=== PATIENT | female | born 1970 | race Caucasian/White ===

== ENCOUNTER 2017-01-29 07:55 | Emergency (ER) | payer BC, OTHER ==
[~2017-01-29] VITALS: Ht 167.6 cm; Wt 83.0 kg
[2017-01-29] MEDS ORDERED: SYNTHROID88 MCG PO (08:45)
[2017-01-29] MEDS ORDERED: VOLTAREN50 MG PO (08:46)
[2017-01-29] MEDS ORDERED: ROBAXIN 750 MG750 M1 PO (08:46)
[2017-01-29] MEDS ORDERED: PREDNISONE 20 M20 MG PO (08:49)
[2017-01-29] MEDS ORDERED: VALIUM5 MG PO (08:49)
[2017-01-29] MEDS ORDERED: NORCO 5-325 TA1 EACH PO (08:49)
[2017-01-29 10:05] VITALS: BP 137/97
[2017-01-30] MEDS ORDERED: NABUMETONE 750750 M1 PO (09:15)
== END 2017-01-29 10:09 | disposition home or self-care (01) ==
LOC: ER 07:55
DX: M43.6 Torticollis (principal); F17.210 Nicotine dependence, cigarettes, uncomplicated; F10.99 Alcohol use, unspecified with unspecified alcohol-induced disorder

== ENCOUNTER → 2017-01-30 | Outpatient (CLI) | payer BC, OTHER ==
[~2017-01-30] VITALS: Ht 167.6 cm; Wt 83.1 kg
[~2017-01-30] MED LIST: NABUMETONE 750750 M1 PO; NORCO 5-325 TA1 EACH PO; PREDNISONE 20 M20 MG PO; ROBAXIN 750 MG750 M1 PO; SYNTHROID88 MCG PO; VALIUM5 MG PO; VOLTAREN50 MG PO
--- NOTE | ~2017-01-30 | HPC ---
[facility] [address] [place] [address] PAIN MANAGEMENT CONSULTATION Name: ROWENA CASTAÑEDA Room #: REG SHARRI Claros#: [id number] Admission: 01/30/17 Attend Phys: Alex Fields DO Discharge: Date of : 68 Report #: [id number] THIS REPORT FOR: //name// CC: QASIM Young DATE OF SERVICE: 01/30/2017 The patient is a 46-year-old female, seen in consultation at the request of Dr. Zina Milner for evaluation of pain, neck, right shoulder and arm. The patient is a 46-year-old female, presents to the pain clinic with a complaint of pain, neck, right shoulder and arm that began without antecedent trauma in April of this year. She states in November, she started to develop some costosternal pain. She did see a chiropractor, that care is ongoing. She developed a little bit of torticollis and that somewhat resolved. She uses rare anti-inflammatory medication Robaxin. She was seen in the ER by Dr. Milner, given a Medrol Dosepak. She apparently has seen a neurosurgeon and was referred to neurology, that consultation is pending. Currently, she notes pain is primarily in the right shoulder, right greater than left posterior occiput, some paresthesia and numbness, right greater than left hands. Rates the pain anywhere from a 7-8 on VAS. Notes pain is continuous and pulling, seems to be exacerbated with any movement. Gets some relief when she is recumbent. REVIEW OF SYSTEMS: A complete review of systems was attached to chart and was gone over with the patient. She is , seen in the company of her who is supportive. She has a 12-year smoking history, currently smokes 1-1/2 packs a day. Drinks alcohol "rarely." History of hypothyroidism for which she uses levothyroxine. History of hypertension, on no current medication. She tells me she has had a stroke in the past, manifested some right arm numbness and tingling. She tells an MRI did show a brainstem stroke. She states she was treated at [facility] at that time, started only on an aspirin. Surgical history includes C-sections in 1989 and 1993, tubal ligation in 1993. Cholecystectomy in 2001. The patient works at [employer] in the F[employer]. Apparently neurosurgeon, Dr. Sandip Aparicio at [facility] has taken her off work and referred her to a neurologist. She states that the reason for being off work was that she "could not focus mentally" because of pain. She has been off work for 2 weeks. Pain impact score is fairly high. PHYSICAL EXAMINATION: Reveals a 5 feet 6 inches, 183-pound female, BMI is 29.6 kg/m2, subjective pain score 7 on a VAS. Blood pressure 160/85, pulse 103, and respirations 16. Cranial nerves 2-12 are grossly intact. Pupils are equal, [facility] [address] [place] [address] PAIN MANAGEMENT CONSULTATION Name: ROWENA CASTAÑEDA Room #: REG SHARRI Claros#: [id number] Admission: 01/30/17 Attend Phys: Alex Fields DO Discharge: Date of : 68 Report #: [id number] reactive to light and accommodation. Extraocular muscles are intact. She does have a little lateral gaze nystagmus. Cervical range of motion exacerbates pain to flexion and extension, pain is primarily right-sided. She has a subjective "pop" in her neck with flexion. Right deltoid strength and right triceps strength are diminished about 3/5, all other muscles about 4/5. Hand grasp is symmetric. Tinel's is negative. Deep tendon reflexes are generally preserved. Heart is regular and rhythmical with a grade 1-2/6 systolic ejection murmur. Lungs are clear. Abdomen is benign. Rises from chair using armrest. Lower extremity strength is preserved, strength is about 4/5, patellar and Achilles reflexes are preserved. Straight leg raise is negative. DIAGNOSTIC STUDIES: Reviewed including x-rays of the cervical spine taken 01/29/2017, noting some degenerative disk space loss at C5-C6 with right-sided neural foraminal narrowing at C3-C4 and reversal of normal cervical lordosis. CT of the cervical spine, taken both 12/13/2016 and follow up 01/18/2017, notes no fracture of the cervical spine, grade 1 spondylolisthesis with degenerative apophyseal joint disease at C3-C4 resulting in some right neural foraminal narrowing, degenerative disk disease at C5-C6 resulting in some spinal stenosis, no change from the prior 01/07/2017 study. MRI of the cervical spine from 12/03/2016, similarly showed slight indentation of the C5-C6 canal. CT of the head from 09/27/2016, notes the aforementioned right C5-C6 facet hypertrophy, no indication of intracranial pathology. ASSESSMENT: Symptomatic cervical radiculopathy by clinical exam in a patient with some chronic anxiety, neuropathic pain, cervical spondylosis and reporting a history of a left-sided brainstem cerebrovascular accident with some right paresthesia in 2013, no diagnostic evidence of same. RECOMMENDATION: 1. Nabumetone 750 b.i.d. today. 2. We will seek authorization for cervical epidural injection under fluoroscopy. 3. If this does not afford adequate relief, we would like to see EMG of the right upper extremity. Thank you for allowing me to participate in the patient's care. I will keep you abreast of her progress. By: [id number] Alex Fields DO /nt
[2017-01-30 08:51] VITALS: BP 160/85
== END | disposition home or self-care (01) ==
LOC: PAIN 07:14
DX: M54.12 Radiculopathy, cervical region (principal); F41.9 Anxiety disorder, unspecified; G62.9 Polyneuropathy, unspecified; M47.27 Other spondylosis with radiculopathy, lumbosacral region; E03.9 Hypothyroidism, unspecified; I10 Essential (primary) hypertension; Z98.890 Other specified postprocedural states; F17.210 Nicotine dependence, cigarettes, uncomplicated

== ENCOUNTER → 2017-02-05 | Outpatient (CLI) | payer BC, OTHER ==
[~2017-02-05] VITALS: Ht 167.6 cm; Wt 84.7 kg
--- NOTE | ~2017-02-05 | HPC ---
[facility] [address] [place] [address] PAIN MANAGEMENT CONSULTATION Name: ROWENA CASTAÑEDA Room #: REG [facility] Harlan#: [id number] Admission: 02/05/17 Attend Phys: Alex Fields DO Discharge: Date of : 68 Report #: [id number] THIS REPORT FOR: //name// CC: Yimi Fields The patient is a 46-year-old female seen in consultation 01/30/2017, diagnosed with symptomatic cervical radiculopathy with ongoing right cervical radiculopathy. We started the patient on nabumetone and sought authorization for epidural injection under fluoroscopy (cervical epidural). The patient presents to pain clinic today for said injection, notes visual analog pain score is 8/10. ASSESSMENT: Symptomatic cervical radiculopathy by clinical exam and history. PROCEDURE: Cervical epidural injection under fluoroscopy. PROCEDURE NOTE: After written and informed consent was obtained including risk of dural puncture, spinal cord trauma, paralysis and increased pain, the patient was taken to the fluoroscopy suite and placed in the prone position, with appropriate abdominal bolstering, neck was flexed, palms under the thighs. Skin was prepped with ChloraPrep. Sterile draping was applied. Skin wheal with 1% Xylocaine was raised. A 22-gauge 3-1/2 inch epidural Tuohy needle was placed via a midline approach at the C7-T1 interspace, advanced under biplanar fluoroscopy using continuous loss of resistance. With appropriate loss of resistance at the expected depth on lateral view, the glass loss of resistance syringe was disconnected. A low volume extension tubing was connected to the needle and a 5 mL syringe. Negative aspiration for cerebrospinal fluid or blood was noted. A 1 mL of Omnipaque was injected which showed spread within the epidural space on biplanar fluoroscopy. This was followed with 80 mg of triamcinolone plus 1 mL of 1.5% preservative Xylocaine. Needle was withdrawn to the interspinous ligament, 0.5 mL of Xylocaine was used to flush the needle. The needle was then completely withdrawn. The area was cleansed. Band-Aid was applied. The patient was allowed to move off the procedure table and ambulated to the recovery room, monitored for an appropriate period of time, discharged in good and stable condition. The patient was discharged in good and stable condition. Please note that she noted pain was absent on discharge, having been an 12/04 on admission. Follow up in 4 weeks for reevaluation. <ELECTRONICALLY SIGNED> By: Alex Fields DO 02/06/17 [id number] Alex Fields DO /nt
[2017-02-05 10:24] VITALS: BP 150/103
== END | disposition home or self-care (01) ==
LOC: PAIN 06:57
DX: M54.12 Radiculopathy, cervical region (principal); F17.210 Nicotine dependence, cigarettes, uncomplicated

== ENCOUNTER 2017-04-15 14:23 | Emergency (ER) | payer BC, OTHER ==
[~2017-04-15] VITALS: Ht 170.2 cm; Wt 77.1 kg
[2017-04-15] MEDS ORDERED: NORVASC5 MG PO (14:33)
[2017-04-15] MEDS ORDERED: IBUPROFEN 600600 M1 PO (16:00)
[2017-04-15] MEDS ORDERED: VALIUM5 MG PO (16:00)
== END 2017-04-15 16:25 | disposition home or self-care (01) ==
LOC: ER 14:23
DX: M43.6 Torticollis (principal); F17.210 Nicotine dependence, cigarettes, uncomplicated; Z90.49 Acquired absence of other specified parts of digestive tract; Z98.890 Other specified postprocedural states

== ENCOUNTER 2017-06-23 09:07 | Emergency (ER) | payer BC, OTHER ==
[~2017-06-23] VITALS: Ht 165.1 cm; Wt 76.2 kg
[~2017-06-23 09:07] MED LIST changes: +IBUPROFEN 600600 M1 PO; +NORVASC5 MG PO
[2017-06-23 09:09] VITALS: BP 125/83
[2017-06-23] MEDS ORDERED: NEURONTIN 300300 M1 PO (09:14)
[2017-06-23] MEDS ORDERED: MEDROLDOSEPACK PO (09:43)
[2017-06-23] MEDS ORDERED: VALIUM5 MG PO (09:43)
== END 2017-06-23 10:27 | disposition home or self-care (01) ==
LOC: ER 09:07
DX: M43.6 Torticollis (principal); I10 Essential (primary) hypertension; F17.210 Nicotine dependence, cigarettes, uncomplicated